=== PATIENT | female | born 1980 | race Asian ===

== ENCOUNTER → 2018-07-09 11:06 | Outpatient (CLI) | payer OTHER, SELFPAY ==
[2018-07-09 12:02] LABS: Monotest Negative (Negative)
== END ==
PROVIDERS: Family Provider Family Medicine; PCP Family Medicine; Visit Provider Family Medicine
DX: Z20.9 Contact with and (suspected) exposure to unspecified communicable disease (principal)
CPT/HCPCS: 36415; 86318

== ENCOUNTER → 2018-10-18 11:48 | Outpatient (CLI) | payer OTHER, SELFPAY ==
[2018-10-18 13:45] LABS: Thyroid Stimulating Hormone 1.89 uIU/mL (0.47-4.68)
== END ==
PROVIDERS: Family Provider Family Medicine; PCP Family Medicine; Visit Provider Family Medicine
DX: E03.9 Hypothyroidism, unspecified (principal)
CPT/HCPCS: 36415; 84443

== ENCOUNTER → 2018-11-05 17:19 | Outpatient (CLI) | payer OTHER, SELFPAY ==
[2018-11-05 18:49] LABS: Thyroid Stimulating Hormone 7.35 uIU/mL (0.47-4.68)
== END ==
PROVIDERS: Family Provider Family Medicine; PCP Family Medicine; Visit Provider Family Medicine
DX: Z98.890 Other specified postprocedural states (principal)
CPT/HCPCS: 36415; 84443

== ENCOUNTER → 2018-11-14 12:40 | Outpatient (CLI) | payer OTHER, SELFPAY ==
--- NOTE | 2018-11-14 12:45 | DI.US.S_ITS ---
PROCEDURE: US OB <= 14 WEEKS FETUS INDICATIONS: Initial US : DATING AND VIABILITY OUTSIDE/PRIOR DATING DATA: Last menstrual period (LMP): 09/14/18 LMP-based estimated date of delivery (ADRAI): 06/21/19. First dating scan (date and location): 11/14/18 Estimated date of delivery (ADRIA) from first dating scan: 07/04/19 TECHNIQUE: Real-time scanning was performed of the fetus and maternal pelvic organs, with image documentation. Endovaginal scanning was also performed to better visualize the fetus and maternal ovaries. COMPARISON: None. FINDINGS: Embryo: [place]-rump length measures 8 mm corresponding to 6 weeks 6 days. Heart rate measures 120 beats per minute. Measurement variability in dating: +/- 4 weeks by LMP, +/- 7 days by mean sac diameter (use before 6 weeks gestation if crown-rump length not able to be measured), +/- 5 days by crown-rump length (up to 8 weeks 6 days gestation), +/- 7 days by crown-rump length (up to 13 weeks 6 days gestation). Maternal organs: Left ovary within normal limits and the right ovary is not visualized. . Limited images through the kidneys demonstrate no hydronephrosis. IMPRESSION: 6 week 6 day single living IUP. Dictated by: Juan A Ronquillo [facility] Interpreted: Amado Henson MD on 11/14/2018 at 15:22 Approved by: Amado Henson M.D. on 11/14/2018 at 15:34
== END ==
PROVIDERS: PCP Family Medicine; Visit Provider Family Medicine
DX: Z34.81 Encounter for supervision of other normal pregnancy, first trimester (principal); Z3A.01 Less than 8 weeks gestation of pregnancy
CPT/HCPCS: 76801; 76817

== ENCOUNTER → 2018-11-27 15:08 | Outpatient (CLI) | payer OTHER, SELFPAY ==
[2018-11-27 15:46] LABS: Add Manual Diff / Slide Review NO; Basophils Absolute Auto 100 /uL (0-100); Eosinophils Absolute Auto 200 /uL (0-450); Eosinophils Percent Auto 1.7 % (2-4); Hematocrit 37.6 % (36-46); Hemoglobin 12.6 g/dL (12.0-16.0); Lymphocytes Absolute Auto 1600 /uL (1100-4500); Lymphocytes Percent Auto 13.6 % (25-40); Mean Corpuscular HGB Conc 33.4 % (30-36); Mean Corpuscular Hemoglobin 27.5 PG (26-34); Mean Corpuscular Volume 82.3 fL (80-100); Monocytes Absolute Auto 600 /uL (0-900); Monocytes Percent Auto 5.5 % (3-14); Neutrophils Absolute Auto 9200 /uL (1500-7000); Neutrophils Percent Auto 78.2 % (50-75); Platelet Count 275 X10^3/uL (150-400); Red Blood Cell Count 4.57 X10^6/uL (4.0-5.2); Red Cell Distribution Width 14.6 % (11.6-14.8); White Blood Cell Count 11.8 X10^3/uL (4.5-11.0)
[2018-11-27 16:46] LABS: Appearance Urine UA SL CLOUDY; Bilirubin Urine UA NEGATIVE (NEGATIVE); Color Urine UA YELLOW; Glucose Urine UA 1+ g/dL (Negative); Ketones Urine UA 1+ (NEGATIVE); Leukocyte Esterase Urine UA NEGATIVE (NEGATIVE); Nitrite Urine UA NEGATIVE (Negative); Occult Blood Urine UA NEGATIVE (Negative); Protein Urine UA NEGATIVE (Negative); Specific Gravity Urine UA >=1.030 (1.000-1.035); Urobilinogen Urine UA 0.2 E.U./dL (0.2); pH Urine UA 5.5 (4.5-8.0)
[2018-11-27 18:43] LABS: Hepatitis B Surface Antigen NEGATIVE s/c (NEGATIVE); Rubella Antibody IgG 64.3 IU/mL (>15)
[2018-11-27 18:58] LABS: HIV 1 & 2 Ab/Ag 4th Gen Combo NEGATIVE (NEGATIVE)
[2018-11-27 18:59] LABS: Hep C Virus Ab w/Reflex Quant NEGATIVE s/c (NEGATIVE)
[2018-11-29 13:39] LABS: RPR Screen Nonreactive (Nonreactive)
[2018-11-29 14:48] LABS: Thyroid Stimulating Hormone 1.82 uIU/mL (0.47-4.68)
== END ==
PROVIDERS: PCP Family Medicine; Visit Provider Family Medicine
DX: Z34.81 Encounter for supervision of other normal pregnancy, first trimester (principal); Z36.9 Encounter for antenatal screening, unspecified
CPT/HCPCS: 36415; 80055; 81003; 84443; 86787; 86803; 86850; 86900; 86901; 87086; 87389

== ENCOUNTER → 2018-12-31 15:18 | Outpatient (CLI) | payer OTHER, SELFPAY ==
[2018-12-31 17:12] LABS: TSH w/ Reflex to FT4 3.78 uIU/mL (0.47-4.68)
== END ==
PROVIDERS: PCP Family Medicine; Visit Provider Family Medicine
DX: O99.281 Endocrine, nutritional and metabolic diseases complicating pregnancy, first trimester (principal); E03.9 Hypothyroidism, unspecified
CPT/HCPCS: 36415; 84443

== ENCOUNTER → 2019-02-11 11:57 | Outpatient (CLI) | payer OTHER, SELFPAY ==
[2019-02-11 13:43] LABS: Thyroid Stimulating Hormone 1.84 uIU/mL (0.47-4.68)
== END ==
PROVIDERS: PCP Family Medicine; Visit Provider Family Medicine
DX: E03.9 Hypothyroidism, unspecified (principal); Z98.890 Other specified postprocedural states
CPT/HCPCS: 36415; 84443

== ENCOUNTER → 2019-02-18 12:18 | Outpatient (CLI) | payer OTHER, SELFPAY ==
--- NOTE | 2019-02-18 12:21 | DI.US.S_ITS ---
PROCEDURE: US OB >= 14 WEEKS FETUS INDICATIONS: ANATOMY OUTSIDE/PRIOR DATING DATA: Last menstrual period (LMP): 09/14/18. LMP-based estimated date of delivery (ADRIA): 06/21/19. First dating scan (date and location): 11/14/18. Estimated date of delivery (ADRIA) from first dating scan: 07/04/19. TECHNIQUE: Real-time scanning was performed of the fetus, with image documentation and biometric measurements. Endovaginal scanning: Not needed for this study COMPARISON: None. FINDINGS: General: A single living intrauterine gestation is present. Presentation: Vertex. Placenta: Placental position is anterior, without previa. Amniotic fluid index: 17.4 cm, normal range is 5-24 cm. heart rate: 147 beats per minute. Maternal cervical canal: Not seen due to deep vertex presentation. biometrics: Biparietal diameter: 4.8 cm, 20 weeks 4 days Head circumference: 18.2 cm, 20 weeks 4 days Abdominal circumference: 16.4 cm, 21 weeks 3 days Femur length: 3.2 cm, 20 weeks 1 day Estimated gestational age from initial scan: 20 weeks 4 days Composite gestational age from present scan: 20 weeks 5 days Estimated weight and percentile: 377 g, 57th percentile Measurement variability for biometric dating: +/- 7 days from 14 weeks to 15 weeks 6 days gestation, +/- 10 days from 16 weeks to 21 weeks 6 days gestation, +/- 2 weeks from 22 weeks to 27 weeks 6 days gestation, +/- 3 weeks for 28 weeks gestation or later. weight reference: 4500 g or EFW >90/95% is considered macrosomia or large for gestational age. EFW <10% is small for gestational age. EFW 5% or less is considered intra-uterine growth restriction. Anatomic survey: Neuro: Ventricles are non-dilated at less than 10 mm. Cisterna magna is normal at 3-11 mm. Cerebellum is normal in size and morphology. Nuchal skin fold: Normal at less than 6 mm between 14-21 weeks gestational age. Face: Nose and lips, facial profile are normal. Spine: No evidence for spina bifida. Heart: 4-chambered heart is present, with normal ventricular outflow tracts. Diaphragm: Diaphragm is intact. Stomach: Left-sided stomach is present. Kidneys: No hydronephrosis. Normal is less than 5 mm in 2nd trimester, less than 7 mm in 3rd trimester. Cord: 3-vessel cord has orthotopic insertion. Bladder: Normal in size. Extremities: All 4 extremities identified. IMPRESSION: Appropriate interval growth, no anomalies seen. The delivery date is projected centered on 07/04/19. Dictated by: Amado Henson M.D. on 02/18/2019 at 14:12 Approved by: Amado Henson M.D. on 02/18/2019 at 14:14
== END ==
PROVIDERS: PCP Family Medicine; Visit Provider Family Medicine
DX: Z36.89 Encounter for other specified antenatal screening (principal); Z3A.20 20 weeks gestation of pregnancy
CPT/HCPCS: 76811

== ENCOUNTER → 2019-03-19 14:38 | Outpatient (CLI) | payer OTHER, SELFPAY ==
[2019-03-19 17:48] LABS: Thyroid Stimulating Hormone 2.04 uIU/mL (0.47-4.68)
== END ==
PROVIDERS: PCP Family Medicine; Visit Provider Family Medicine
DX: E03.9 Hypothyroidism, unspecified (principal); Z98.890 Other specified postprocedural states
CPT/HCPCS: 36415; 84443

== ENCOUNTER → 2019-03-31 11:09 | Outpatient (CLI) | payer OTHER, SELFPAY ==
--- NOTE | 2019-04-25 08:28 | P.HOLT.S_ITS ---
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 No dysrhythmias to associate with symptom of palpitations identified on this study
== END ==
PROVIDERS: PCP Family Medicine; Visit Provider Family Medicine
DX: R00.2 Palpitations (principal)
CPT/HCPCS: 0296T; 0298T

== ENCOUNTER → 2019-04-08 12:31 | Outpatient (CLI) | payer OTHER, SELFPAY ==
[2019-04-08 17:34] LABS: GTT (PREG) 1 Hour PP 50gm Dose 153 mg/dL (76-139)
== END ==
PROVIDERS: PCP Family Medicine; Visit Provider Family Medicine
DX: Z34.92 Encounter for supervision of normal pregnancy, unspecified, second trimester (principal)
CPT/HCPCS: 36415; 82950

== ENCOUNTER → 2019-04-17 09:05 | Outpatient (CLI) | payer OTHER, SELFPAY ==
[2019-04-17 10:58] LABS: Glucose Fasting Gestational 65 mg/dL (76-95)
[2019-04-17 11:33] LABS: Glucose 1 Hour Gest 167 mg/dL (76-180)
[2019-04-17 12:21] LABS: Glucose 2 Hour Gest 105 mg/dL (76-155)
[2019-04-17 12:37] LABS: Glucose Tol Interp,Gestational INTERPRETATION
[2019-04-17 13:31] LABS: Glucose 3 Hour Gest 58 mg/dL (76-140)
== END ==
PROVIDERS: PCP Family Medicine; Visit Provider Family Medicine
DX: R73.09 Other abnormal glucose (principal)
CPT/HCPCS: 36415; 82951; 82952

== ENCOUNTER → 2019-05-06 11:55 | Outpatient (CLI) | payer OTHER, SELFPAY ==
[2019-05-06 14:24] LABS: Thyroid Stimulating Hormone 3.19 uIU/mL (0.47-4.68)
== END ==
PROVIDERS: PCP Family Medicine; Visit Provider Family Medicine
DX: E03.9 Hypothyroidism, unspecified (principal)
CPT/HCPCS: 36415; 84443

== ENCOUNTER → 2019-06-03 12:19 | Outpatient (CLI) | payer OTHER, SELFPAY ==
[2019-06-04 12:35] LABS: Strep Grp B PCR POS for Grp B Strep
== END ==
PROVIDERS: PCP Family Medicine; Visit Provider Family Medicine
DX: Z3A.36 36 weeks gestation of pregnancy (principal)
CPT/HCPCS: 87653

== ENCOUNTER → 2019-06-17 12:46 | Outpatient (CLI) | payer OTHER, SELFPAY ==
[2019-06-17 15:04] LABS: Thyroid Stimulating Hormone 2.99 uIU/mL (0.47-4.68)
== END ==
PROVIDERS: PCP Family Medicine; Referring Provider Family Medicine; Visit Provider Family Medicine
DX: E03.9 Hypothyroidism, unspecified (principal); Z98.890 Other specified postprocedural states
CPT/HCPCS: 36415; 84443

== ENCOUNTER → 2019-06-25 08:17 | Outpatient (CLI) | payer OTHER, SELFPAY ==
--- NOTE | 2019-06-25 08:19 | DI.US.S_ITS ---
PROCEDURE: US OB LIMITED INDICATIONS: SGA OUTSIDE/PRIOR DATING DATA: Last menstrual period (LMP): 09/14/18. LMP-based estimated date of delivery (ADRIA): 06/21/19. First dating scan (date and location): 11/14/18. Estimated date of delivery (ADRIA) from first dating scan: 07/04/19. TECHNIQUE: Real-time scanning was performed of the fetus, with image documentation and biometric measurements. Endovaginal scanning: Not performed COMPARISON: None. FINDINGS: General: A single living intrauterine gestation is present. Presentation: Vertex Placenta: Placental position is anterior, without previa. Amniotic fluid index: 11 cm, normal range is 5-24 cm. heart rate: 155 beats per minute. Maternal cervical canal: None measured. biometrics: Biparietal diameter: 8.8 cm, 35 weeks, 5 days Head circumference: 32.3 cm, 36 weeks, 4 days Abdominal circumference: 34.4 cm, 38 weeks, 2 days Femur length: 6.8 cm, 35 weeks, zero days Estimated gestational age from initial scan: 38 weeks, 5 days Composite gestational age from present scan: 36 weeks, 3 days Estimated weight and percentile: 3103 Grams, 26% Measurement variability for biometric dating: +/- 7 days from 14 weeks to 15 weeks 6 days gestation, +/- 10 days from 16 weeks to 21 weeks 6 days gestation, +/- 2 weeks from 22 weeks to 27 weeks 6 days gestation, +/- 3 weeks for 28 weeks gestation or later. weight reference: 4500 g or EFW >90/95% is considered macrosomia or large for gestational age. EFW <10% is small for gestational age. EFW 5% or less is considered intra-uterine growth restriction. Other: Not applicable. IMPRESSION: 1. Single live intrauterine . Normal amount of amniotic fluid. Estimated gestational age based on current study is 36 weeks 3 days. Estimated gestational age from initial scan is 38 weeks, 5 days. Estimated weight is in 26 percentile. Dictated by: Mirza Saenz M.D. on 06/25/2019 at 9:06 Approved by: Mirza Saenz M.D. on 06/25/2019 at 9:14
== END ==
PROVIDERS: PCP Family Medicine; Referring Provider Family Medicine; Visit Provider Family Medicine
DX: O26.843 Uterine size-date discrepancy, third trimester (principal); Z3A.36 36 weeks gestation of pregnancy
CPT/HCPCS: 76815

== ENCOUNTER 2019-06-26 19:08 | Inpatient (IN) | payer OTHER, SELFPAY ==
[2019-06-26 19:42] VITALS: BP 113/68
[2019-06-26] MEDS: LACTATED RINGERS 1,000 ML 100 ML IV ×2 (19:45→23:57)
[2019-06-26 20:04] LABS: Add Manual Diff / Slide Review NO; Basophils Absolute Auto 100 /uL (0-100); Basophils Percent Auto 0.4 % (0-2); Eosinophils Absolute Auto 100 /uL (0-450); Eosinophils Percent Auto 0.4 % (2-4); Hematocrit 37.8 % (36-46); Hemoglobin 12.5 g/dL (12.0-16.0); Lymphocytes Absolute Auto 1600 /uL (1100-4500); Lymphocytes Percent Auto 11.2 % (25-40); Mean Corpuscular Hemoglobin 27.9 PG (26-34); Mean Corpuscular Volume 84.4 fL (80-100); Monocytes Absolute Auto 900 /uL (0-900); Monocytes Percent Auto 6.4 % (3-14); Neutrophils Absolute Auto 11500 /uL (1500-7000); Neutrophils Percent Auto 81.6 % (50-75); Platelet Count 266 X10^3/uL (150-400); Red Blood Cell Count 4.48 X10^6/uL (4.0-5.2); Red Cell Distribution Width 13.8 % (11.6-14.8); White Blood Cell Count 14.1 X10^3/uL (4.5-11.0)
[2019-06-26] MEDS: PENICILLIN G POTASSIUM 5,000,000 UNIT in DEXTROSE 5% IN WATER 250 ML IV (20:43)
[2019-06-26] MEDS: FENT 2MCG/ML BUPIV 0.125% EPI 200 MCG/100 ML PLAST..BAG 11 MCG EPIDURAL (21:00)
[2019-06-26] MEDS: PENICILLIN G POTASSIUM 3,000,000 UNIT/50 ML FROZ.PIGGY 100 UNIT IV (23:56)
--- NOTE | 2019-06-27 01:24 | P.HPOB_ITS ---
OB HPI Date/Time Date of admission: 06/26/19 Date Patient Seen: 06/27/19 Time Patient Seen: 01:15 History of Present Condition Chief complaint: maternity : 3 Para: 1 Estimated Date of Delivery: 06/28/19 Estimated Gestational Age (weeks): 39w6d Narrative: Reena Barrientos is a 39 year old at 39w6d who presented with regular painful contractions. Contractions started around 5pm, and progressed in frequency and intensity since then. She has had some bloody show as well. No LOF. She is feeling the baby move regularly. History of Present care: good care, initiated at week # (9) and pounds weight gain (28) Dating criteria: LMP confirmed by 1st trimester US Ultrasounds: normal 1st trimester US and normal mid trimester US Obstetrical complications: none Medical complications: other (post thyroidectomy hypothyroidism) Preadmission Labs Blood type: O (+) positive -: Antibody screen: negative, GBS status: positive, HBsAG: negative, HIV: negative and RPR/VDLR: negative -: Rubella: immune and Varicella: immune HCT: 37.6 HCAB: negative 1 hr GTT: 153 3 hr GTT: 1 hr (167), 2 hr (105) and 3 hr (58) Fasting blood glucose: 65 Prior (ies) History: 05/05/15 - SAB at 10wks 3 - at 37wks after IOL for IUGR. 5lb6oz female. Evaluation Evaluation Baseline heart rate: 130 Variability: Moderate (11-25) monitor accelerations: Present monitor decelerations: Absent Contraction Frequency (minutes): 4 Uterine Contraction Intensity: Strong/Firm Category of Tracing: I Cervical dilation (cm): 10 Cervical effacement (%): 100 station: +2 Laboratory results: Laboratory Tests 06/26/19 06/26/19 19:52 19:52 WBC 14.1 H RBC 4.48 Hgb 12.5 Hct 37.8 MCV 84.4 MCH 27.9 MCHC 33.0 RDW 13.8 Plt Count 266 Neut % (Auto) 81.6 H Lymph % (Auto) 11.2 L [place] % (Auto) 6.4 Eos % (Auto) 0.4 L Baso % (Auto) 0.4 Neut # (Auto) 90421 H Lymph # (Auto) 1600 [place] # (Auto) 900 Eos # (Auto) 100 Baso # (Auto) 100 Blood Type O Positive Antibody Screen Negative [facility] Medical History (Updated 06/24/19 @ 12:05 by Imani Ospina MD) Goiter (Chronic) Hyperthyroidism (Resolved 02/05/17) Hypothyroidism (Chronic) Surgical History S/P thyroidectomy (Resolved) Social History marital status: number of children: 1 household members: spouse and children lives independently: Yes caregiver/support person: No housing: house pets and animals: Yes (dogs) occupational status: unemployed praful/jain: Jehov[employer] special praful needs: Yes seatbelt use: always Smoking Status: Never smoker second hand exposure: No alcohol intake: never substance use type: does not use Meds Home Medications and Allergies Home Medications Medication Instructions Recorded Confirmed Type calcitriol 0.5 mcg capsule 1 mcg PO DAILY #60 cap 08/12/18 06/26/19 Rx prenat.vits,gerardo,[id number] 1 tab PO DAILY 11/14/18 06/26/19 History levothyroxine 112 mcg capsule 112 mcg PO DAILY #30 cap 06/17/19 06/26/19 Rx Allergies Allergy/AdvReac Type Severity Reaction Status Date / Time egg [EGG] Allergy Intermediate BLISTERS Verified 06/26/19 20:32 lactose [LACTOSE] Allergy Intermediate BLISTERS Verified 06/26/19 20:32 peanut [PEANUT] Allergy Intermediate BLISTERS Verified 06/26/19 20:32 Exam Vital Signs (past 8 hours): - 06/26/19 19:42 Blood Pressure 113/68 Narrative Exam Narrative: Gen: NAD, sitting comfortably in bed, appears well CV: RRR, no murmurs Resp: clear to auscultation bilaterally Abd: soft, nontender, nondistended, gravid Ext: no edema Objective Labs Result Diagrams: 06/26/19 19:52 Labs: Laboratory Results - last 24 hr 06/26/19 06/26/19 19:52 19:52 WBC 14.1 H RBC 4.48 Hgb 12.5 Hct 37.8 MCV 84.4 MCH 27.9 MCHC 33.0 RDW 13.8 Plt Count 266 Neut % (Auto) 81.6 H Lymph % (Auto) 11.2 L [place] % (Auto) 6.4 Eos % (Auto) 0.4 L Baso % (Auto) 0.4 Neut # (Auto) 28150 H Lymph # (Auto) 1600 [place] # (Auto) 900 Eos # (Auto) 100 Baso # (Auto) 100 Blood Type O Positive Antibody Screen Negative Assessment and Plan Assessment and Plan Assessment and Plan narrative: 39yo at 39w6d here in active labor. complicated by post surgical hypothyroidism with Levothyroxine titrated appropriately throughout . GBS positive, has received ad equate prophylaxis. Rh positive. - Expectant management, anticipate - FHT reassuring - Epidural in place for pain control - Continue penicillin for GBS prophylaxis
[2019-06-27] MEDS: OXYTOCIN 10 UNIT/ML VIAL 20 UNIT (02:11)
[2019-06-27] MEDS: LEVOTHYROXINE 112 MCG TABLET PO (09:13)
--- NOTE | 2019-06-27 10:30 | PM.OBPRVD ---
Labor & Delivery Delivery date: 06/27/19 Intrapartal events: None Cervical ripening method: none Induction method: none Delivery monitor: external FHT Route of delivery: Episiotomy description: None L&D Laceration Description: Perineal - 2nd Degree Delivery repair: chromic Estimated blood loss (mL): 100 Anesthesia type: Epidural Complications: None Narrative: PROCEDURE: at 39w6d presented in active labor and was admitted to Labor and Delivery. The patient progressed through the 1st stage over 8 hours. Pain was controlled with an epidural. The pt had SROM with production of clear fluid. She received 2 doses of penicillin for GBS prophylaxis. The patient progressed through the 2nd stage over 45 minutes and delivered a viable male infant with APGARs 9/9 at 02:02 via without complications. The perineum and vagina were inspected with 2nd degree perineal laceration repaired with 3-O Chromic. PREPROCEDURE DIAGNOSIS: Intrauterine at 39w6d GBS positive RH positive POSTPROCEDURE DIAGNOSIS: Intrauterine at 39w6d, delivered Same as preprocedure ROM APPEARANCE: Clear BABY A DELIVERY TIME: 02:02 BABY A WEIGHT: 7lb5.5oz BABY A NUCHAL CORD: None PLACENTA DELIVERY TIME: 2:10 PLACENTA APPEARANCE: Intact Baby 1: Infant gender: Male Presentation: vertex position: Right Occiput Anterior Placenta delivery description: Spontaneous cord vessel description: 3 Vessels score (1 min): 9 score (5 min): 9 Plan for aftercare: Normal care
[2019-06-28] MEDS: LEVOTHYROXINE 112 MCG TABLET PO (06:31)
--- NOTE | 2019-06-28 09:15 | PM.OBDS.1 ---
Discharge Providers Provider Date of admission: 06/26/19 19:08 Discharge Date: 06/28/19 Primary care physician: Imani Ospina MD Consults: 06/28/19 02:25 Consult to Coin Wrapping Machine Operator Routine Comment: Discharge provider: Imani Ospina MD Summary Hospital Course Date Patient Seen: 06/28/19 Time Patient Seen: 09:00 Procedures: Spontaneous vaginal delivery Hospital Course: The patient presented in active labor. She received an epidural for pain control. She progressed to complete and had a spontaneous vaginal delivery of a viable baby boy at 02:02 on 06/27/19. A 2nd degree perineal laceration was then repaired. The pt tolerated labor well. , there were no complications. At the time of discharge, she was voiding, ambulating, and passing flatus without difficulty. Her pain was well controlled. Her lochia was decreasing appropriately. She was with good latch. She will f/u in clinic in 6 weeks. Peripartum Data Delivery Method: Natural Vaginal Laceration description: Perineal - 2nd Degree Episiotomy description: None Procedures: Spontaneous vaginal delivery complications: none [place] 1: Gender: Male Disposition of : home Status at Discharge Cognitive/behavioral status at discharge: oriented Functional status at discharge: independent ambulation Overall status at discharge: patient is progressing back to baseline Time Spent with Patient Time attestation: Total time spent providing and/or coordinating discharge services: Time spent: Greater than 30 minutes Objective Labs Result Diagrams: 06/26/19 19:52 Discharge Plan Discharge Plan Patient Disposition: Home Discharge orders & Medications Prescriptions: New acetaminophen 325 mg Tablet 650 mg PO Q6HR PRN (Reason: Pain, Mild (1-3)) Qty: 30 RF: 0 Dermoplast (with menthol) 20-0.5 % Aerosol 1 spray topical Q1HR PRN (Reason: perineal pain) Qty: 15 RF: 0 ibuprofen 600 mg Tablet 600 mg PO Q6HR PRN (Reason: Pain, Mild (1-3)) Qty: 30 RF: 0 Xjm-[id number] Cream 1 applic topical PRN PRN (Reason: Tenderness) Qty: 15 RF: 0 Continued calcitriol 0.5 mcg capsule 1 mcg PO DAILY Qty: 60 RF: 1 levothyroxine 112 mcg capsule 112 mcg PO DAILY Qty: 30 RF: 3 prenat.vits,gerardo,[id number]-wphn-xscbd tablet 1 tab PO DAILY RF: 0 Follow up/Referrals: Imani Ospina MD [Primary Care Provider] - 6 Weeks Skin/Wound/Dressing Care Report to your healthcare provider any signs of infection, such as:: chills, fever, increased pain and unusual drainage Visit Report/Discharge Packet Instructions: DI for Labor and Delivery, Vaginal Stand Alone Forms: Discharge: Care Visit Report Forms: Patient Portal/API, Stroke Signs & Symptoms Discharge Data Primary Care Provider: Imani Ospina
== END 2019-06-28 11:02 | disposition home or self-care (01) | DRG 807 ==
PROVIDERS: Admitting Provider Family Medicine; PCP Family Medicine; Referring Provider Family Medicine; Visit Provider Family Medicine
DX: O99.824 Streptococcus B carrier state complicating childbirth (principal); Z37.0 Single live birth; E03.9 Hypothyroidism, unspecified; O70.1 Second degree perineal laceration during delivery; Z3A.39 39 weeks gestation of pregnancy
CPT/HCPCS: 01967; 36415; 59050; 59400; 85025; 86850; 86900; 86901; G0379; J2540; J2590

== ENCOUNTER → 2019-08-21 09:35 | Outpatient (CLI) | payer OTHER, SELFPAY ==
[2019-08-21 11:20] LABS: Thyroid Stimulating Hormone < 0.02 uIU/mL (0.47-4.68)
== END ==
PROVIDERS: PCP Family Medicine; Referring Provider Family Medicine; Visit Provider Family Medicine
DX: E03.9 Hypothyroidism, unspecified (principal)
CPT/HCPCS: 36415; 84443

== ENCOUNTER → 2019-10-02 09:55 | Outpatient (CLI) | payer OTHER, SELFPAY ==
[2019-10-02 13:05] LABS: TSH w/ Reflex to FT4 < 0.02 uIU/mL (0.47-4.68)
[2019-10-02 18:04] LABS: Free T4, Direct Thyroxine 1.58 ng/dL (0.78-2.19)
== END ==
PROVIDERS: PCP Family Medicine; Referring Provider Family Medicine; Visit Provider Family Medicine
DX: E03.9 Hypothyroidism, unspecified (principal)
CPT/HCPCS: 36415; 84439; 84443

== ENCOUNTER → 2019-11-25 11:43 | Outpatient (CLI) | payer OTHER, SELFPAY ==
[2019-11-25 13:42] LABS: Free T3, Triiodothyronine Free 2.95 pg/mL (2.77-5.27); Free T4, Direct Thyroxine 1.12 ng/dL (0.78-2.19)
[2019-11-25 14:06] LABS: Thyroid Stimulating Hormone 1.07 uIU/mL (0.47-4.68)
== END ==
PROVIDERS: PCP Family Medicine; Referring Provider Family Medicine; Visit Provider Family Medicine
DX: E03.9 Hypothyroidism, unspecified (principal)
CPT/HCPCS: 36415; 84439; 84443; 84481

== ENCOUNTER → 2021-02-21 10:12 | Outpatient (CLI) | payer OTHER, SELFPAY ==
[2021-02-21 11:47] LABS: Thyroid Stimulating Hormone 0.897 uIU/mL (0.47-4.68)
== END ==
PROVIDERS: PCP Family Medicine; Referring Provider Family Medicine; Visit Provider Family Medicine
DX: E03.9 Hypothyroidism, unspecified (principal)
CPT/HCPCS: 36415; 84443

== ENCOUNTER → 2021-05-10 14:00 | Outpatient (CLI) | payer OTHER, SELFPAY ==
[2021-05-10 15:58] LABS: Thyroid Stimulating Hormone 3.75 uIU/mL (0.47-4.68)
== END ==
PROVIDERS: PCP Family Medicine; Referring Provider Family Medicine; Visit Provider Family Medicine
DX: E89.0 Postprocedural hypothyroidism (principal)
CPT/HCPCS: 36415; 84443

== ENCOUNTER → 2021-05-12 13:20 | Outpatient (CLI) | payer OTHER, SELFPAY ==
[2021-05-14 21:14] LABS: HCG Quantitative /Beta subunit 4189.7 mIU/mL
== END ==
PROVIDERS: PCP Family Medicine; Referring Provider Family Medicine; Visit Provider Family Medicine
DX: Z34.90 Encounter for supervision of normal pregnancy, unspecified, unspecified trimester (principal)
CPT/HCPCS: 84702

== ENCOUNTER → 2021-05-16 12:16 | Outpatient (CLI) | payer OTHER, SELFPAY ==
[2021-05-16 14:40] LABS: HCG Quantitative /Beta subunit 13466 mIU/mL
== END ==
PROVIDERS: PCP Family Medicine; Referring Provider Family Medicine; Visit Provider Family Medicine
DX: N91.2 Amenorrhea, unspecified (principal)
CPT/HCPCS: 36415; 84702

== ENCOUNTER → 2021-06-10 10:27 | Outpatient (CLI) | payer OTHER, SELFPAY ==
[2021-06-10 11:31] LABS: Add Manual Diff / Slide Review NO; Basophils Absolute Auto 0 /uL (0-100); Basophils Percent Auto 0.3 % (0-2); Eosinophils Absolute Auto 100 /uL (0-450); Eosinophils Percent Auto 0.9 % (2-4); Hematocrit 39.2 % (36-46); Hemoglobin 13.3 g/dL (12.0-16.0); Lymphocytes Absolute Auto 1400 /uL (1100-4500); Lymphocytes Percent Auto 18.6 % (25-40); Mean Corpuscular Hemoglobin 27.9 PG (26-34); Mean Corpuscular Volume 81.9 fL (80-100); Monocytes Absolute Auto 900 /uL (0-900); Neutrophils Absolute Auto 5000 /uL (1500-7000); Neutrophils Percent Auto 68.2 % (50-75); Platelet Count 260 X10^3/uL (150-400); Red Blood Cell Count 4.79 X10^6/uL (4.0-5.2); Red Cell Distribution Width 13.5 % (11.6-14.8); White Blood Cell Count 7.3 X10^3/uL (4.5-11.0)
[2021-06-10 11:35] LABS: Appearance Urine UA CLEAR; Bilirubin Urine UA NEGATIVE (NEGATIVE); Color Urine UA YELLOW; Glucose Urine UA NEGATIVE (Negative); Ketones Urine UA NEGATIVE (NEGATIVE); Leukocyte Esterase Urine UA NEGATIVE (NEGATIVE); Nitrite Urine UA NEGATIVE (Negative); Occult Blood Urine UA NEGATIVE (Negative); Protein Urine UA NEGATIVE (Negative); Specific Gravity Urine UA 1.015 (1.000-1.035); Urobilinogen Urine UA 0.2 E.U./dL (0.2)
[2021-06-10 11:38] LABS: pH Urine UA 5.5 (4.5-8.0)
[2021-06-10 12:19] LABS: Thyroid Stimulating Hormone 2.29 uIU/mL (0.47-4.68)
[2021-06-10 12:21] LABS: Hepatitis B Surface Antigen NEGATIVE s/c (NEGATIVE); Rubella Antibody IgG 64.3 IU/mL (>15)
[2021-06-10 12:43] LABS: HIV 1 & 2 Ab/Ag 4th Gen Combo NEGATIVE (NEGATIVE); Hep C Virus Ab w/Reflex Quant NEGATIVE s/c (NEGATIVE)
[2021-06-11 04:42] LABS: RPR Screen Non Reactive (Non Reactive)
[2021-06-11 08:52] LABS: Varicella IgG Antibody 1576 index (Immune >165)
== END ==
PROVIDERS: PCP Family Medicine; Referring Provider Family Medicine; Visit Provider Family Medicine
DX: O09.529 Supervision of elderly multigravida, unspecified trimester (principal); Z36.9 Encounter for antenatal screening, unspecified; Z3A.10 10 weeks gestation of pregnancy; E89.0 Postprocedural hypothyroidism
CPT/HCPCS: 36415; 80055; 81003; 84443; 86787; 86803; 86850; 86900; 86901; 87389

== ENCOUNTER → 2021-07-04 13:01 | Outpatient (CLI) | payer OTHER, SELFPAY | PROVIDERS: PCP Family Medicine; Referring Provider Family Medicine; Visit Provider Family Medicine | DX: E03.9 Hypothyroidism, unspecified (principal) | CPT/HCPCS: 36415; 84443 ==

== ENCOUNTER → 2021-08-17 12:32 | Outpatient (CLI) | payer OTHER, SELFPAY ==
[2021-08-17 14:50] LABS: Thyroid Stimulating Hormone 1.41 uIU/mL (0.47-4.68)
== END ==
PROVIDERS: PCP Family Medicine; Referring Provider Family Medicine; Visit Provider Family Medicine
DX: E89.0 Postprocedural hypothyroidism (principal); Z34.90 Encounter for supervision of normal pregnancy, unspecified, unspecified trimester
CPT/HCPCS: 36415; 84443

== ENCOUNTER → 2021-08-25 12:19 | Outpatient (CLI) | payer OTHER, SELFPAY ==
--- NOTE | 2021-08-25 12:20 | DI.US.S_ITS ---
PROCEDURE: US OB >= 14 WEEKS FETUS INDICATIONS: Anatomy Screening OUTSIDE/PRIOR DATING DATA: Last menstrual period (LMP): Unknown. First dating scan (date and location): 08/25/2021. Estimated date of delivery (ADRIA) from first dating scan: 01/06/2022. TECHNIQUE: Real-time scanning was performed of the fetus, with image documentation and biometric measurements. COMPARISON: None from current . FINDINGS: General: A single living intrauterine gestation is present. Presentation: Breech. Placenta: Placental position is anterior , without previa. Amniotic fluid index: 13.9 cm, normal range is 5-24 cm. Single deepest vertical pocket is 4.5 cm. heart rate: 144 beats per minute. Maternal cervical canal: 4.3 cm long. Normal lower limit is 2.5 cm. biometrics: Biparietal diameter: 4.9 cm, 20 weeks 5 days Head circumference: 18.5 cm, 20 weeks 6 days Abdominal circumference: 15.6 cm, 20 weeks 5 days Femur length: 3.5 cm, 21 weeks 0 days Clinically estimated gestational age: Not applicable Composite gestational age from present scan: 20 weeks 6 days Estimated weight and percentile: 384 g Anatomic survey: Neuro: Ventricles are non-dilated at less than 10 mm. Cisterna magna is normal at 3-11 mm. Cerebellum is normal in size and morphology. Nuchal skin fold: Normal at less than 6 mm between 14-21 weeks gestational age. Face: Nose and lips, facial profile are normal. Spine: No evidence for spina bifida. Heart: 4-chambered heart is present, with normal ventricular outflow tracts. Diaphragm: Diaphragm is intact. Stomach: Left-sided stomach is present. Kidneys: No hydronephrosis. Normal is less than 5 mm in 2nd trimester, less than 7 mm in 3rd trimester. Cord: 3-vessel cord has orthotopic insertion. Bladder: Normal in size. Extremities: All 4 extremities identified. IMPRESSION: 1. Single living intrauterine with measurements corresponding to a composite gestational age of 20 weeks 6 days and estimated delivery date of 01/06/2022. 2. No abnormalities identified on anatomic survey. We strive to produce accurate, complete, and clear reports of imaging services. To assist us in improving patient care, this report was composed using standard report templates and voice recognition software. Therefore, it may contain abnormal punctuation, insertions and/or omissions. Occasional wrong-word or sound-alike substitutions may occur. Though we review the report and make efforts to correct it, we do recommend that the report be read carefully in proper context to recognize any text inaccuracies. Dictated by: Silvio Smith M.D. on 08/25/2021 at 17:09 Approved by: Silvio Smith M.D. on 08/25/2021 at 17:13
== END ==
PROVIDERS: PCP Family Medicine; Referring Provider Family Medicine; Visit Provider Family Medicine
DX: Z34.92 Encounter for supervision of normal pregnancy, unspecified, second trimester (principal); Z3A.20 20 weeks gestation of pregnancy
CPT/HCPCS: 76811

== ENCOUNTER → 2021-10-11 12:43 | Outpatient (CLI) | payer OTHER, SELFPAY ==
[2021-10-11 14:41] LABS: Add Manual Diff / Slide Review NO; Basophils Absolute Auto 0 /uL (0-100); Basophils Percent Auto 0.2 % (0-2); Eosinophils Absolute Auto 100 /uL (0-450); Eosinophils Percent Auto 1.4 % (2-4); Hematocrit 33.9 % (36-46); Hemoglobin 11.3 g/dL (12.0-16.0); Lymphocytes Absolute Auto 1200 /uL (1100-4500); Lymphocytes Percent Auto 13.1 % (25-40); Mean Corpuscular HGB Conc 33.3 % (30-36); Mean Corpuscular Hemoglobin 27.6 PG (26-34); Mean Corpuscular Volume 82.7 fL (80-100); Monocytes Absolute Auto 500 /uL (0-900); Monocytes Percent Auto 5.2 % (3-14); Neutrophils Absolute Auto 7200 /uL (1500-7000); Neutrophils Percent Auto 80.1 % (50-75); Platelet Count 267 X10^3/uL (150-400)
[2021-10-11 15:00] LABS: GTT (PREG) 1 Hour PP 50gm Dose 161 mg/dL (76-139)
== END ==
PROVIDERS: PCP Family Medicine; Referring Provider Family Medicine; Visit Provider Family Medicine
DX: Z34.92 Encounter for supervision of normal pregnancy, unspecified, second trimester (principal); Z3A.25 25 weeks gestation of pregnancy
CPT/HCPCS: 36415; 82950; 85025

== ENCOUNTER → 2021-10-31 13:57 | Outpatient (CLI) | payer OTHER, SELFPAY ==
[2021-10-31 16:00] LABS: Thyroid Stimulating Hormone 1.23 uIU/mL (0.47-4.68)
[2021-10-31 16:10] LABS: Glucose 1 Hour 179 mg/dL (70-170)
[2021-10-31 17:40] LABS: Glucose 2 Hour 155 mg/dL (70-140)
[2021-10-31 18:55] LABS: Glucose Tol Interpretation INTERPRETATION
[2021-10-31 19:01] LABS: Glucose 3 Hour 130 mg/dL (70-115)
[2021-10-31 22:37] LABS: Glucose Fasting 63 mg/dL (70-100)
== END ==
PROVIDERS: PCP Family Medicine; Referring Provider Family Medicine; Visit Provider Family Medicine
DX: Z34.90 Encounter for supervision of normal pregnancy, unspecified, unspecified trimester (principal); E89.0 Postprocedural hypothyroidism
CPT/HCPCS: 36415; 82951; 82952; 84443

== ENCOUNTER 2021-12-09 15:46 | Outpatient (CLI) | payer OTHER, SELFPAY ==
--- NOTE | 2021-12-09 16:45 | PM.OBTRLD ---
Visit Information Visit Information Date of evaluation: 12/09/21 Primary OB Provider: Imani Ospina Reason for Evaluation: Yes non-stress test non-stress test reason: other Comments/Additional reasons for admission: 41yo at 36w3d here for NST for AMA. also complicated by GDMA1. Pt feeling baby move regularly. No contractoins, LOF, vaginal bleeding. [facility] Medical History (Updated 11/11/21 @ 14:17 by Imani Ospina MD) Acne (~1995) Advanced maternal age (AMA), 40 years or greater Chicken pox (~1986) Goiter Renetta's disease Hyperthyroidism (02/05/17) Hypothyroidism Surgical History (Updated 07/07/21 @ 20:03 by Shelley Boyd) Anesthesia H/O abdominal surgery (~1978) S/P thyroidectomy (~07/2018) Family History (Updated 07/07/21 @ 20:10 by Shelley Boyd) Mother Premature Father Hypertension Hyperlipidemia Grandfather No problems noted. Grandmother Breast cancer Grandmother No problems noted. Grandfather No problems noted. Social History marital status: number of children: 2 household members: spouse and children lives independently: Yes caregiver/support person: No housing: house pets and animals: Yes (dogs) education level: college (BS Economics, Marketing) occupational status: unemployed ([employer]) current occupational exposures/hazards: No praful/anglican: Mosque special praful needs: Yes (If possible, would like starch cooker's blessing while in hospital or in labor.) seatbelt use: always do you feel safe at home: Yes Smoking Status: Never smoker second hand exposure: Yes (As a child, her dad smoked around her. ) alcohol intake: never substance use type: does not use during the past year weight has: remained stable well-balanced diet: daily or most days daily servings fruits/ve-4 caffeine: No Type(s) of exercise: walking, yoga and normal ROM and activity (Busy mom) frequency: 5-6 times per week duration: 30-45 minutes/day Evaluation Evaluation Baseline heart rate: 130 Variability: Moderate (11-25) monitor accelerations: Present Monitor Decelerations: Absent Category of Tracing: Reactive Diagnosis, Plan/Disposition Final Diagnosis (1) AMA (advanced maternal age) multigravida 35+: Status: Acute (2) 36 weeks gestation of : Plan/Disposition Plan: 41yo at 36w3d here for NST for AMA. NST reactive. Continue weekly monitoring. OB Disposition: home
== END 2021-12-09 16:50 | disposition home or self-care (01) ==
LOC: LABOR 15:59 → OB 12-12 12:52
PROVIDERS: PCP Family Medicine; Referring Provider Family Medicine; Visit Provider Family Medicine
DX: O09.523 Supervision of elderly multigravida, third trimester (principal); O24.419 Gestational diabetes mellitus in pregnancy, unspecified control; Z3A.36 36 weeks gestation of pregnancy
CPT/HCPCS: 59025; 87653; G0378; G0379

== ENCOUNTER → 2021-12-09 15:55 | Outpatient (CLI) | payer OTHER, SELFPAY ==
[2021-12-10 14:21] LABS: Strep Grp B PCR POS for Grp B Strep
== END ==
PROVIDERS: PCP Family Medicine; Visit Provider Family Medicine
DX: Z34.93 Encounter for supervision of normal pregnancy, unspecified, third trimester (principal); Z3A.36 36 weeks gestation of pregnancy
CPT/HCPCS: 87653

== ENCOUNTER 2021-12-16 16:27 | Outpatient (CLI) | payer OTHER, SELFPAY ==
--- NOTE | 2021-12-16 16:36 | DI.US.S_ITS ---
PROCEDURE: US OB FOLLOW UP INDICATIONS: RE-EVAL. Growth. OUTSIDE/PRIOR DATING DATA: Last menstrual period (LMP): Unknown. First dating scan (date and location): 08/25/2021. Estimated date of delivery (ADRIA) from first dating scan: 01/06/2022. TECHNIQUE: Real-time scanning was performed of the fetus, with image documentation. Endovaginal scanning: Not performed COMPARISON: [facility], OB >= 14 WEEKS FETUS, 08/25/2021, 12:27. FINDINGS: A single living intrauterine gestation is present. Presentation: Cephalic. Placenta: Placental position is anterior, without previa. Amniotic fluid index: 8.3 cm, normal range is 5-24 cm. Single deepest vertical pocket is 2.9 cm. heart rate: 144 beats per minute. Maternal cervical canal: 3.0 cm long. Normal lower limit is 2.5 cm. Estimated gestational age from initial scan: 37 weeks 0 days. Biometry: Biparietal diameter: 8.89 cm, 36 weeks 0 days Head circumference: 31.92 cm, 36 weeks 0 days Abdominal circumference: 32.61 cm, 36 weeks 4 days Femur length: 7.04 cm, 36 weeks 1 day Composite gestational age: 36 weeks 1 day Estimated weight: 2889 g, 37th percentile. IMPRESSION: 1. Single living intrauterine in cephalic presentation. 2. Normal interval growth. 3. Amniotic fluid index of 8.3, within normal limits. Dictated by: Regan Moreau M.D. on 12/22/2021 at 9:09 Approved by: Regan Moreau M.D. on 12/22/2021 at 9:16
== END 2021-12-16 17:42 | disposition home or self-care (01) ==
LOC: OB 12-19 10:16
PROVIDERS: PCP Family Medicine; Referring Provider Family Medicine; Visit Provider Family Medicine
DX: O24.419 Gestational diabetes mellitus in pregnancy, unspecified control (principal); O09.523 Supervision of elderly multigravida, third trimester; Z3A.37 37 weeks gestation of pregnancy
CPT/HCPCS: 59025; 76816; G0378; G0379

== ENCOUNTER 2021-12-21 16:25 | Outpatient (CLI) | payer OTHER, SELFPAY ==
--- NOTE | 2021-12-21 17:23 | P.TNLD_ITS ---
Visit Information Visit Information Date of evaluation: 12/21/21 Primary OB Provider: Imani Ospina Reason for Evaluation: Yes non-stress test Comments/Additional reasons for admission: Gest DM COUNT INCLUDES THE [facility] Medical History (Updated 11/11/21 @ 14:17 by Imani Ospina MD) Acne (~1995) Advanced maternal age (AMA), 40 years or greater Chicken pox (~1986) Goiter Renetta's disease Hyperthyroidism (02/05/17) Hypothyroidism Surgical History (Updated 07/07/21 @ 20:03 by Shelley Boyd) Anesthesia H/O abdominal surgery (~1978) S/P thyroidectomy (~07/2018) Family History (Updated 07/07/21 @ 20:10 by Shelley Boyd) Mother Premature Father Hypertension Hyperlipidemia Grandfather No problems noted. Grandmother Breast cancer Grandmother No problems noted. Grandfather No problems noted. Social History marital status: number of children: 2 household members: spouse and children lives independently: Yes caregiver/support person: No housing: house pets and animals: Yes (dogs) education level: college (BS Economics, Marketing) occupational status: unemployed ([employer]) current occupational exposures/hazards: No praful/advent: Yazdanism special praful needs: Yes (If possible, would like cupola tapper helper's blessing while in hospital or in labor.) seatbelt use: always do you feel safe at home: Yes Smoking Status: Never smoker second hand exposure: Yes (As a child, her dad smoked around her. ) alcohol intake: never substance use type: does not use during the past year weight has: remained stable well-balanced diet: daily or most days daily servings fruits/ve-4 caffeine: No Type(s) of exercise: walking, yoga and normal ROM and activity (Busy mom) frequency: 5-6 times per week duration: 30-45 minutes/day Evaluation Evaluation Baseline heart rate: 130 Variability: Moderate (11-25) monitor accelerations: Present Monitor Decelerations: Variable (A single variable associated with prolonged contraction is noted) Category of Tracing: Reactive Status: Category l Diagnosis, Plan/Disposition Plan/Disposition Plan: Continue testing; consider induction at or prior to 39 weeks EGA due to combined indication of GDM and AMA. OB Disposition: home
== END 2021-12-21 17:25 | disposition home or self-care (01) ==
LOC: LABOR 17:57 → OB 12-29 07:20
PROVIDERS: PCP Family Medicine; Referring Provider Family Medicine; Visit Provider Family Medicine
DX: O24.419 Gestational diabetes mellitus in pregnancy, unspecified control (principal); O09.523 Supervision of elderly multigravida, third trimester; Z3A.38 38 weeks gestation of pregnancy
CPT/HCPCS: 59025; G0378; G0379

== ENCOUNTER 2021-12-23 15:57 | Outpatient (CLI) | payer OTHER, SELFPAY ==
--- NOTE | 2021-12-23 16:42 | P.TNLD_ITS ---
Visit Information Visit Information Date of evaluation: 12/23/21 Primary OB Provider: Imani Ospina On-call OB Provider: India Purcell Reason for Evaluation: Yes non-stress test non-stress test reason: diabetes Vital Signs Vital Signs: Blood pressure 100/60, pulse 78, temperature 36.9? [facility] Medical History (Updated 12/23/21 @ 16:43 by India Purcell MD) 38 weeks gestation of Acne (~1995) Advanced maternal age (AMA), 40 years or greater Chicken pox (~1986) Goiter Renetta's disease Hyperthyroidism (02/05/17) Hypothyroidism Surgical History (Updated 07/07/21 @ 20:03 by Shelley Boyd) Anesthesia H/O abdominal surgery (~1978) S/P thyroidectomy (~07/2018) Family History (Updated 07/07/21 @ 20:10 by Shelley Boyd) Mother Premature Father Hypertension Hyperlipidemia Grandfather No problems noted. Grandmother Breast cancer Grandmother No problems noted. Grandfather No problems noted. Social History marital status: number of children: 2 household members: spouse and children lives independently: Yes caregiver/support person: No housing: house pets and animals: Yes (dogs) education level: college (BS Economics, Marketing) occupational status: unemployed ([facility] [employer]) current occupational exposures/hazards: No praful/pentecostal: [employer] special praful needs: Yes (If possible, would like marine electronics technician's blessing while in hospital or in labor.) seatbelt use: always do you feel safe at home: Yes Smoking Status: Never smoker second hand exposure: Yes (As a child, her dad smoked around her. ) alcohol intake: never substance use type: does not use during the past year weight has: remained stable well-balanced diet: daily or most days daily servings fruits/ve-4 caffeine: No Type(s) of exercise: walking, yoga and normal ROM and activity (Busy mom) frequency: 5-6 times per week duration: 30-45 minutes/day Evaluation Evaluation Baseline heart rate: 130 Variability: Moderate (11-25) monitor accelerations: Present Monitor Decelerations: Variable Contraction Frequency (minutes): 10 Category of Tracing: Reactive Diagnosis, Plan/Disposition Final Diagnosis (1) Gestational diabetes: Status: Acute (2) AMA (advanced maternal age) multigravida 35+: Status: Acute (3) 38 weeks gestation of : Status: Acute Plan/Disposition Plan: Reactive nonstress test with slight occasional variables overall reassuring. Continue twice weekly nonstress test OB Disposition: home
== END 2021-12-23 17:01 | disposition home or self-care (01) ==
LOC: OB 12-29 07:21
PROVIDERS: PCP Family Medicine; Referring Provider Family Medicine; Visit Provider Family Medicine
DX: O24.419 Gestational diabetes mellitus in pregnancy, unspecified control (principal); O09.523 Supervision of elderly multigravida, third trimester; Z3A.38 38 weeks gestation of pregnancy
CPT/HCPCS: 59025; G0378; G0379

== ENCOUNTER 2021-12-28 16:15 | Outpatient (CLI) | payer OTHER, SELFPAY ==
--- NOTE | 2021-12-28 16:43 | PM.OBTRLD ---
Visit Information Visit Information Date of evaluation: 12/28/21 Primary OB Provider: Imani Ospina Reason for Evaluation: Yes non-stress test non-stress test reason: other (AMA) Comments/Additional reasons for admission: 41yo at 39w1d here for NST for AMA. Pt is feeling baby move regularly. No LOF, contractions, bleeding. [facility] Medical History (Updated 12/28/21 @ 16:44 by Imani Ospina MD) Acne (~1995) Advanced maternal age (AMA), 40 years or greater Chicken pox (~1986) Goiter Renetta's disease Hyperthyroidism (02/05/17) Hypothyroidism Surgical History (Updated 07/07/21 @ 20:03 by Shelley Boyd) Anesthesia H/O abdominal surgery (~1978) S/P thyroidectomy (~07/2018) Family History (Updated 07/07/21 @ 20:10 by Shelley Boyd) Mother Premature Father Hypertension Hyperlipidemia Grandfather No problems noted. Grandmother Breast cancer Grandmother No problems noted. Grandfather No problems noted. Social History marital status: number of children: 2 household members: spouse and children lives independently: Yes caregiver/support person: No housing: house pets and animals: Yes (dogs) education level: college (BS Economics, Marketing) occupational status: unemployed ([employer]) current occupational exposures/hazards: No praful/congregational: [employer] special praful needs: Yes (If possible, would like sign erector's blessing while in hospital or in labor.) seatbelt use: always do you feel safe at home: Yes Smoking Status: Never smoker second hand exposure: Yes (As a child, her dad smoked around her. ) alcohol intake: never substance use type: does not use during the past year weight has: remained stable well-balanced diet: daily or most days daily servings fruits/ve-4 caffeine: No Type(s) of exercise: walking, yoga and normal ROM and activity (Busy mom) frequency: 5-6 times per week duration: 30-45 minutes/day Evaluation Evaluation Baseline heart rate: 125 Variability: Moderate (11-25) monitor accelerations: Present Monitor Decelerations: Absent Category of Tracing: Reactive Diagnosis, Plan/Disposition Final Diagnosis (1) Gestational diabetes: Status: Acute (2) AMA (advanced maternal age) multigravida 35+: Status: Acute (3) 39 weeks gestation of : Status: Acute Plan/Disposition Plan: 41yo at 39w1d here for NST for AMA. NST reactive. IOL scheduled for next week at 40wks. Stable for d/c home. OB Disposition: home
== END 2021-12-28 17:06 | disposition home or self-care (01) ==
LOC: LABOR 12-29 07:57 → OB 12-30 07:52
PROVIDERS: PCP Family Medicine; Referring Provider Family Medicine; Visit Provider Family Medicine
DX: O09.523 Supervision of elderly multigravida, third trimester (principal); O24.419 Gestational diabetes mellitus in pregnancy, unspecified control; Z3A.39 39 weeks gestation of pregnancy
CPT/HCPCS: 59025; G0378; G0379

== ENCOUNTER 2022-01-04 17:10 | Inpatient (IN) | payer OTHER, SELFPAY ==
--- NOTE | 2022-01-04 17:23 | PM.OBHP.IH.1 ---
OB HPI Date/Time Date of admission: 01/04/22 Date Patient Seen: 01/04/22 History of Present Condition Chief complaint: ADRIA Calculator Estimated Delivery Date Method Current WG Current Estimate 01/03/22 LMP (Certain) 40w 1d Other Estimates 01/09/22 Ultrasound #1 39w 2d 01/03/22 Manual 40w 1d Final ADRIA - YEIMI Estimated Gestational Age (weeks): 40w1d : 4 Para: 2 care: good care, initiated at week # (10) and pounds weight gain (15) Dating criteria OB: LMP confirmed by 1st trimester US Ultrasounds: normal 1st trimester US and normal mid trimester US Obstetrical complications: gestational diabetes (A1) Medical complications OB: other (postoperative hypothyroidism, AMA) Indications Indication for induction OB: other (AMA) Preadmission Labs Last OB Lab Results: Blood Type O Positive 06/10/21 10:59 Antibody Screen Negative 06/10/21 10:59 Hematocrit 33.9 % (36-46) L 10/11/21 13:06 Hemoglobin 11.3 g/dL (12.0-16.0) L 10/11/21 13:06 Hepatitis B Surface Antigen Negative s/c (NEGATIVE) 06/10/21 10:59 Hepatitis C Antibody Negative s/c (NEGATIVE) 06/10/21 10:59 Rubella Antibody 64.3 IU/mL (>15) 06/10/21 10:59 Varicella-Zoster IgG Antibody 1576 index (Immune >165) 06/10/21 10:59 Glucose 1 Hour 161 mg/dL (76-139) H 10/11/21 13:06 Group B Streptococcus (PCR) Pos for grp b strep H 12/09/21 15:55 Glucose Tolerance Testing: Fasting (63), 1 hr (179), 2 hr (155) and 3 hr (130) -: Urine: negative External Labs -: Urine: negative Prior (ies) Past Pregnancies Del. Date GA/Weeks Labor Lgth Wt Sex Route Outcome Anesthesia Place Delv Breastfeed Preg Comp Name 05/05/15 spontaneous 07/12/17 37 12 5 lb 14 oz Female vaginal live - full term epidural IH Dr. Ospina 2 years intrauterine growth restr Nohemi 06/27/19 40 7 lb 5 oz Male vaginal live - full term epidural IH Dr Ospina Still BF none Tala Delivery Date: 05/05/15 Last Updated by: Jane Howard R.N. SAB with D&C Delivery Date: 07/12/17 Last Updated by: Jane Howard R.N. Hyperthyroidism dx'd early in . Tx methimazole. GBS+. Cervedil Induction for IUGR. NICU x 2 weeks. Evaluation Evaluation Baseline heart rate: 130 Variability: Moderate (11-25) monitor accelerations: Present Monitor Decelerations: Absent Category of Tracing: Reactive Dilation (cm): 3 Effacement (%): 80 Dilation: 3-4 cm Effacement: >/=80% station: +1 Position of cervix: mid Consistency: soft Ge score: 11 [facility] Medical History (Updated 12/28/21 @ 16:44 by Imani Ospina MD) Acne (~1995) Advanced maternal age (AMA), 40 years or greater Chicken pox (~1986) Goiter Renetta's disease Hyperthyroidism (02/05/17) Hypothyroidism Surgical History (Updated 07/07/21 @ 20:03 by Shelley Boyd) Anesthesia H/O abdominal surgery (~1978) S/P thyroidectomy (~07/2018) Family History (Updated 07/07/21 @ 20:10 by Shelley Boyd) Mother Premature Father Hypertension Hyperlipidemia Grandfather No problems noted. Grandmother Breast cancer Grandmother No problems noted. Grandfather No problems noted. Social History marital status: number of children: 2 household members: spouse and children lives independently: Yes caregiver/support person: No housing: house pets and animals: Yes (dogs) education level: college (BS Economics, Marketing) occupational status: unemployed ([facility]) current occupational exposures/hazards: No praful/judaism: [employer] special praful needs: Yes (If possible, would like pharmacy operations specialist's blessing while in hospital or in labor.) seatbelt use: always do you feel safe at home: Yes Smoking Status: Never smoker second hand exposure: Yes (As a child, her dad smoked around her. ) alcohol intake: never substance use type: does not use during the past year weight has: remained stable well-balanced diet: daily or most days daily servings fruits/ve-4 caffeine: No Type(s) of exercise: walking, yoga and normal ROM and activity (Busy mom) frequency: 5-6 times per week duration: 30-45 minutes/day Meds Home Medications and Allergies Home Medications Medication Instructions Recorded Confirmed Type prenat.vits,gerardo,[id number] 1 tab PO DAILY 11/14/18 11/11/21 History acetaminophen 325 mg tablet 650 mg PO Q6HR PRN Pain, Mild 06/28/19 11/11/21 Rx (1-3) #30 tabs levothyroxine 112 mcg tablet See Rx Instructions .Route 09/27/21 11/11/21 Rx .COMPLEX #30 tabs Blood Glucose Meter #1 ea 11/11/21 11/11/21 Rx Glucose Test Strips #120 ea 11/11/21 11/11/21 Rx Lancets #100 ea 11/11/21 11/11/21 Rx Allergies Allergy/AdvReac Type Severity Reaction Status Date / Time egg [EGG] Allergy Intermediate BLISTERS Verified 11/11/21 11:43 lactose [LACTOSE] Allergy Intermediate BLISTERS Verified 11/11/21 11:43 peanut [PEANUT] Allergy Intermediate BLISTERS Verified 11/11/21 11:43 OB Exam Narrative Exam Narrative: Gen: NAD, sitting comfortably in bed, appears well CV: RRR, no murmurs Resp: clear to auscultation bilaterally Abd: soft, nontender, gravid Ext: no edema Assessment and Plan Assessment and Plan Assessment and Plan narrative: 41yo at 40w1d who presented for IOL for AMA. GBS positive, Rh positive. complicated by GDMA1 with excellent control, postoperative hypothyroidism, and AMA. Ge score 11. - Expectant management, anticipate - FHT reassuring - GBS positive, start prophylaxis now - FHT reassuring - Start penicillin, titrate as tolerated - Plan on AROM once adequate GBS prophylaxis
[2022-01-04 17:30] VITALS: BP 101/63
[2022-01-04 18:06] LABS: Add Manual Diff / Slide Review NO; Basophils Absolute Auto 100 /uL (0-100); Basophils Percent Auto 0.6 % (0-2); Eosinophils Absolute Auto 100 /uL (0-450); Eosinophils Percent Auto 0.7 % (2-4); Hematocrit 36.2 % (36-46); Hemoglobin 12.4 g/dL (12.0-16.0); Lymphocytes Absolute Auto 1400 /uL (1100-4500); Mean Corpuscular HGB Conc 34.2 % (30-36); Mean Corpuscular Hemoglobin 28.4 PG (26-34); Mean Corpuscular Volume 82.9 fL (80-100); Monocytes Absolute Auto 700 /uL (0-900); Monocytes Percent Auto 6.9 % (3-14); Neutrophils Absolute Auto 7900 /uL (1500-7000); Neutrophils Percent Auto 77.8 % (50-75); Platelet Count 256 X10^3/uL (150-400); Red Blood Cell Count 4.37 X10^6/uL (4.0-5.2); Red Cell Distribution Width 14.3 % (11.6-14.8); White Blood Cell Count 10.2 X10^3/uL (4.5-11.0)
[2022-01-04] MEDS: LACTATED RINGERS 1,000 ML 100 ML IV (18:18)
[2022-01-04] MEDS: PENICILLIN G POTASSIUM 5,000,000 UNIT in DEXTROSE 5% IN WATER 250 ML 250 UNIT IV (18:18)
[2022-01-04] MEDS: OXYTOCIN PREMIX 30 UNIT/500 ML PLAST..BAG IV (18:26)
[2022-01-04 20:18] LABS: COVID19 -Nasal RAPID Negative (Negative)
--- NOTE | 2022-01-04 22:22 | PM.OBPNLAB ---
Date/Time Date Patient Seen: 01/04/22 Time Patient Seen: 22:22 Pain Control Pain control: tolerating well Pelvic Exam Dilation (cm): 3.5 Effacement (%): 80 station: +1 Amniotic membrane status: Ruptured Comments: After informed consent, AROM performed with production of clear fluid. Contractions Pitocin rate (mU/min): 12 Contraction frequency (min): 3 Contraction pattern: Regular Contraction intensity: Mild Status status: Category l Heart Rate Baseline: 135 Monitor Accelerations: Present Monitor Decelerations: Absent Monitor Variability: Moderate Assessment and Plan Comments: 41yo at 40w1d who presented for IOL for AMA.? GBS positive, Rh positive.? complicated by GDMA1 with excellent control, postoperative hypothyroidism, and AMA.? After adequate GBS prophylaxis, AROM performed with production of clear fluid. - Expectant management, anticipate - FHT reassuring - GBS positive, continue penicillin prophylaxis - Continue pitocin, titrate as tolerated
[2022-01-04] MEDS: PENICILLIN G POTASSIUM 3,000,000 UNIT/50 ML FROZ.PIGGY 100 UNIT IV (22:25)
--- NOTE | 2022-01-05 00:03 | PM.OBPRVD ---
Labor & Delivery Delivery date: 01/04/22 Intrapartal Events: Precipitous Labor < 3 hours Cervical ripening method: none Induction method: per pitocin protocol Delivery augmentation: rupture of membranes Delivery monitor: external FHT and external uterine Route of delivery: Episiotomy description: None L&D Laceration Description: Perineal - 2nd Degree Delivery repair: vicryl Quantitative Blood Loss: 75 Anesthesia Type: None Complications: None Narrative: PROCEDURE: at 40w1d presented for IOL for AMA and was admitted to Labor and Delivery. After adequate GBS prophylaxis, AROM was performed with production of clear fluid. The patient progressed through the 1st stage over 40 minutes. Pain was controlled with natural methods. The patient progressed through the 2nd stage over 16 minutes and delivered a viable female infant with APGARs 9/9 at 23:16 via precipitous vaginal delivery without complications by nursing due to the rapidity of labor and delivery. There was a 1 minute shoulder dystocia, relieved with Phoebe and suprapubic pressure. This provider arrived for delivery of the placenta, with gentle cord traction and countertraction. The perineum and vagina were inspected with 2nd degree laceration repaired with 3-O Vicryl with local anesthesia. PREPROCEDURE DIAGNOSIS: Intrauterine at 40w1d Postoperative hypothyroidism GDMA1 AMA GBS positive RH positive POSTPROCEDURE DIAGNOSIS: Intrauterine at 40w1d, delivered Same as preprocedure Shoulder dystocia [place] Baby 1: Infant gender: Female Presentation: vertex Position: Right Occiput Anterior Placenta delivery description: Spontaneous Cord Vessel Description: 3 Vessels score (1 min): 9 score (5 min): 9 weight: 6 lb 10.633 oz Plan for aftercare: Routine care
[2022-01-05] MEDS: ACETAMINOPHEN 325 MG TABLET 650 MG PO ×3 (03:25→17:13)
[2022-01-05] MEDS: IBUPROFEN 600 MG TABLET PO ×3 (03:26→17:13)
[2022-01-05] MEDS: DERMOPLAST SPRAY 20% 60 ML 1 SPRAY TOP (03:26)
[2022-01-05] MEDS: PRENATAL VIT,CALC/IRON/FOLIC 1 TABLET 1 TAB PO (09:40)
[2022-01-05] MEDS: DOCUSATE 100 MG CAPSULE PO (09:40)
--- NOTE | 2022-01-05 10:36 | P.DS_ITS ---
Discharge Providers Provider Date of admission: 01/04/22 17:10 Discharge Date: 01/05/22 Primary care physician: Imani Ospina MD Consults: 01/06/22 00:11 Consult to Psychometric Examiner Routine Comment: Discharge provider: Imani Ospina MD Summary Hospital Course Date Patient Seen: 01/05/22 Time Patient Seen: 10:36 Diagnoses: Intrauterine at 40w1d Postoperative hypothyroidism GDMA1 AMA GBS positive RH positive Shoulder dystocia Hospital Course: The patient presented for induction of labor for advanced maternal age she was started on Pitocin, and made no significant change. A mariela was then performed with production of clear fluid. The patient then progressed rapidly and had a precipitous spontaneous vaginal delivery with shoulder dystocia. The distortion was relieved with Phoebe and suprapubic pressure. There were no complications for the baby. A 2nd degree perineal laceration was then repaired. The patient had no complications . At the time of discharge she was voiding, ambulating, passing flatus without difficulty. Her lochia was decreasing appropriately. Her pain was well controlled. She was breast-feeding was good latch. She will follow-up in 6 weeks for check. She does not desire anything for contraception.. Peripartum Data Delivery Method: Natural Vaginal Laceration Description: Perineal - 2nd Degree Episiotomy description: None Procedures: Spontaneous vaginal delivery complications: none 1: Gender: Female Disposition of : home Discharge Diagnosis (1) AMA (advanced maternal age) multigravida 35+: Status: Acute (2) Gestational diabetes: Status: Acute (3) Hypothyroidism: Status: Chronic (4) Spontaneous vaginal delivery: Status: Acute Status at Discharge Cognitive/behavioral status at discharge: oriented Functional status at discharge: independent ambulation Overall status at discharge: patient is progressing back to baseline Time Spent with Patient Time attestation: Total time spent providing and/or coordinating discharge services: Objective Labs Result Diagrams: 01/04/22 17:35 Labs: Laboratory Results - last 24 hr 01/04/22 01/04/22 01/04/22 17:35 17:35 17:35 WBC 10.2 RBC 4.37 Hgb 12.4 Hct 36.2 MCV 82.9 MCH 28.4 MCHC 34.2 RDW 14.3 Plt Count 256 Neut % (Auto) 77.8 H Lymph % (Auto) 14.0 L [place] % (Auto) 6.9 Eos % (Auto) 0.7 L Baso % (Auto) 0.6 Neut # (Auto) 7900 H Lymph # (Auto) 1400 [place] # (Auto) 700 Eos # (Auto) 100 Baso # (Auto) 100 SARS-CoV-2 (PCR) Negative Blood Type O Positive Antibody Screen Negative Exam Narrative Exam Narrative: Gen: NAD, sitting comfortably in bed, appears well CV: RRR, no murmurs Resp: clear to auscultation bilaterally Abd: soft, appropriately tender, fundus firm and below the umbilicus, nondistended Ext: no edema Discharge Plan Discharge Plan Patient Disposition: Home Discharge orders & Medications Prescriptions: New acetaminophen 325 mg Tablet 650 mg PO Q6HR PRN (Reason: Pain, Mild (1-3)) Qty: 30 0RF docusate sodium 100 mg Capsule 100 mg PO DAILY Qty: 30 0RF ibuprofen 600 mg Tablet 600 mg PO Q6HR PRN (Reason: Pain, Mild (1-3)) Qty: 30 0RF Continued levothyroxine 112 mcg tablet See Rx Instructions .ROUTE .COMPLEX Qty: 30 11RF Dose Instruction: take 1 tablet by mouth once daily Rx Instructions: take 1 tablet by mouth once daily prenat.vits,gerardo,[id number] tablet 1 tab PO DAILY Discontinued (DME) Blood Glucose Meter See Rx Instructions .Route .MEDSUPPLY Qty: 1 0RF Rx Instructions: Use to check blood glucose levels each morning fasting and 2 hours after breakfast, lunch and dinner each day (DME) Glucose Test Strips See Rx Instructions .Route .MEDSUPPLY Qty: 120 11RF Rx Instructions: Use a new test strips each time you check your blood glucose, fasting each morning and 2 hrs after breakfast, lunch and dinner each day. (DME) Lancets See Rx Instructions .Route .MEDSUPPLY Qty: 100 0RF Rx Instructions: use as directed Follow up/Referrals: Imani Ospina MD [Primary Care Provider] - 6 Weeks Diet/Activity/Treatments Diet: Diet as Tolerated and Regular Skin/Wound/Dressing Care Report to your healthcare provider any signs of infection, such as:: chills, fever, increased pain and unusual drainage Visit Report/Discharge Packet Instructions: DI for Labor and Delivery, Vaginal Visit Report Forms: Patient Portal/API, Stroke Signs & Symptoms Discharge Data Primary Care Provider: Imani Ospina Discharges patient from system. Discharge Date/Time: 01/05/22 18:30
== END 2022-01-05 18:30 | disposition home or self-care (01) | DRG 807 ==
PROVIDERS: Admitting Provider Family Medicine; PCP Family Medicine; Referring Provider Family Medicine; Visit Provider Family Medicine
DX: O24.420 Gestational diabetes mellitus in childbirth, diet controlled (principal); Z37.0 Single live birth; O62.3 Precipitate labor; Z3A.40 40 weeks gestation of pregnancy; O48.0 Post-term pregnancy; O99.824 Streptococcus B carrier state complicating childbirth; O70.1 Second degree perineal laceration during delivery; O66.0 Obstructed labor due to shoulder dystocia; O99.284 Endocrine, nutritional and metabolic diseases complicating childbirth; E89.0 Postprocedural hypothyroidism; Z20.822 Contact with and (suspected) exposure to COVID-19
CPT/HCPCS: 36415; 59050; 59400; 85025; 86850; 86900; 86901; 87635; C9803; G0379; J2540; J2590

== ENCOUNTER → 2022-03-06 10:20 | Outpatient (CLI) | payer OTHER, SELFPAY ==
[2022-03-06 11:26] LABS: Glucose Fasting 85 mg/dL (70-100)
[2022-03-06 12:47] LABS: Glucose Tol Interpretation INTERPRETATION
[2022-03-06 14:22] LABS: Glucose 1 Hour 166 mg/dL (70-170)
[2022-03-06 14:22] LABS: Glucose 2 Hour 144 mg/dL (70-140)
[2022-03-06 14:50] LABS: TSH w/ Reflex to FT4 < 0.02 uIU/mL (0.47-4.68)
[2022-03-06 15:37] LABS: Free T4, Direct Thyroxine 1.38 ng/dL (0.78-2.19)
== END ==
PROVIDERS: PCP Family Medicine; Referring Provider Family Medicine; Visit Provider Family Medicine
DX: O24.419 Gestational diabetes mellitus in pregnancy, unspecified control (principal); E89.0 Postprocedural hypothyroidism
CPT/HCPCS: 36415; 82951; 82952; 84439; 84443

== ENCOUNTER → 2022-03-22 10:09 | Outpatient (CLI) | payer OTHER, SELFPAY ==
[2022-03-22 11:09] LABS: Hemoglobin A1C% w Est Avg Glu 5.4 % (4.0-6.0)
[2022-03-22 11:49] LABS: TSH w/ Reflex to FT4 < 0.02 uIU/mL (0.47-4.68)
[2022-03-22 12:17] LABS: Free T4, Direct Thyroxine 1.56 ng/dL (0.78-2.19)
== END ==
PROVIDERS: PCP Family Medicine; Referring Provider Family Medicine; Visit Provider Family Medicine
DX: O24.419 Gestational diabetes mellitus in pregnancy, unspecified control (principal); E89.0 Postprocedural hypothyroidism
CPT/HCPCS: 36415; 83036; 84439; 84443

== ENCOUNTER → 2022-06-08 10:28 | Outpatient (CLI) | payer OTHER, SELFPAY ==
[2022-06-08 12:33] LABS: TSH w/ Reflex to FT4 2.69 uIU/mL (0.47-4.68)
== END ==
PROVIDERS: PCP Family Medicine; Referring Provider Family Medicine; Visit Provider Family Medicine
DX: E89.0 Postprocedural hypothyroidism (principal)
CPT/HCPCS: 36415; 84443

== ENCOUNTER → 2023-11-28 12:36 | Outpatient (CLI) | payer OTHER, SELFPAY ==
[2023-11-28 13:20] LABS: Hemoglobin A1C% w Est Avg Glu 5.3 % (4.0-6.0)
[2023-11-28 13:32] LABS: Alanine Aminotransferase 16 IU/L (<35); Albumin 4.5 g/dL (3.5-5.0); Albumin Globulin Ratio 1.7 (1.0-2.8); Alkaline Phosphatase 66 U/L (38-126); Aspartate Aminotransferase 26 IU/L (14-36); BUN Creatinine Ratio 20.3 (6-22); Bilirubin Total 0.4 mg/dL (0.2-1.3); Blood Urea Nitrogen 13 mg/dL (7-17); Calcium 8.6 mg/dL (8.4-10.2); Carbon Dioxide 27 mmol/L (22-32); Chloride 104 mmol/L (98-107); Estimated Glomerular Filt Rate > 60 mL/min (>60); Globulin 2.6 g/dL (1.7-4.1); Glucose 84 mg/dL (70-100); HEMOLYSIS < 15 (0-50); Potassium 4.2 mmol/L (3.4-5.1); Sodium 139 mmol/L (137-145); Total Protein 7.1 g/dL (6.3-8.2)
[2023-11-28 14:05] LABS: TSH w/ Reflex to FT4 1.79 uIU/mL (0.47-4.68)
== END ==
PROVIDERS: PCP Family Medicine; Referring Provider Family Medicine; Visit Provider Family Medicine
DX: E89.0 Postprocedural hypothyroidism (principal); E04.9 Nontoxic goiter, unspecified; Z86.32 Personal history of gestational diabetes; Z13.1 Encounter for screening for diabetes mellitus
CPT/HCPCS: 36415; 80053; 83036; 84443

== ENCOUNTER → 2024-02-12 09:22 | Outpatient (CLI) | payer SELFPAY ==
[2024-02-12 11:25] LABS: HCG Quantitative /Beta subunit 734.83 mIU/mL
== END ==
LOC: LAB 09:23
PROVIDERS: PCP Family Medicine; Referring Provider Family Medicine; Visit Provider Family Medicine
DX: Z34.90 Encounter for supervision of normal pregnancy, unspecified, unspecified trimester (principal)
CPT/HCPCS: 36415; 84702

== ENCOUNTER → 2024-02-13 13:49 | Outpatient (CLI) | payer OTHER, SELFPAY ==
[2024-02-13 16:52] LABS: HCG Quantitative /Beta subunit 183.46 mIU/mL
== END ==
PROVIDERS: PCP Family Medicine; Referring Provider Family Medicine; Visit Provider Family Medicine
DX: O03.9 Complete or unspecified spontaneous abortion without complication (principal)
CPT/HCPCS: 36415; 84702

== ENCOUNTER → 2025-03-30 16:17 | Outpatient (CLI) | payer OTHER, SELFPAY ==
[2025-03-30 16:43] LABS: Add Manual Diff / Slide Review NO; Hematocrit 35.7 % (36-46); Hemoglobin 11.9 g/dL (12.0-16.0); Lymphocytes Absolute Auto 1800 /uL (1100-4500); Mean Corpuscular HGB Conc 33.4 % (30-36); Mean Corpuscular Hemoglobin 27.0 PG (26-34); Mean Corpuscular Volume 80.7 fL (80-100); Platelet Count 347 X10^3/uL (150-400)
[2025-03-30 17:17] LABS: Appearance Urine UA CLEAR; Bilirubin Urine UA NEGATIVE (NEGATIVE); Color Urine UA YELLOW; Glucose Urine UA NEGATIVE (Negative); Ketones Urine UA TRACE (NEGATIVE); Leukocyte Esterase Urine UA TRACE (NEGATIVE); Nitrite Urine UA NEGATIVE (Negative); Occult Blood Urine UA NEGATIVE (Negative); Protein Urine UA NEGATIVE (Negative); Specific Gravity Urine UA 1.015 (1.000-1.035); Urobilinogen Urine UA 0.2 E.U./dL (0.2)
[2025-03-30 17:18] LABS: pH Urine UA 7.0 (4.5-8.0)
[2025-03-30 17:35] LABS: Free T4, Direct Thyroxine 1.18 ng/dL (0.78-2.19)
[2025-03-30 18:00] LABS: Thyroid Stimulating Hormone 6.16 uIU/mL (0.47-4.68)
[2025-03-31 15:09] LABS: Hepatitis B Surface Antigen NEGATIVE s/c (NEGATIVE)
[2025-03-31 15:29] LABS: HIV 1 & 2 Ab/Ag 4th Gen Combo NEGATIVE (NEGATIVE); Hep C Virus Ab w/Reflex Quant NEGATIVE s/c (NEGATIVE)
== END ==
PROVIDERS: PCP Family Medicine; Referring Provider Family Medicine; Visit Provider Family Medicine
DX: O09.899 Supervision of other high risk pregnancies, unspecified trimester (principal)
CPT/HCPCS: 36415; 80055; 81003; 81015; 84439; 84443; 84702; 86787; 86803; 86850; 86900; 86901; 87389

== ENCOUNTER → 2025-03-31 08:28 | Outpatient (CLI) | payer OTHER, SELFPAY | PROVIDERS: PCP Family Medicine; Visit Provider Family Medicine | DX: O09.899 Supervision of other high risk pregnancies, unspecified trimester (principal) | CPT/HCPCS: 87086 ==

== ENCOUNTER → 2025-04-27 16:19 | Outpatient (CLI) | payer OTHER, SELFPAY ==
[2025-04-27 17:41] LABS: Thyroid Stimulating Hormone 3.66 uIU/mL (0.47-4.68)
== END ==
PROVIDERS: PCP Family Medicine; Referring Provider Family Medicine; Visit Provider Family Medicine
DX: E89.0 Postprocedural hypothyroidism (principal)
CPT/HCPCS: 36415; 84443